=== PATIENT | male | born 1940 | race Two or more races ===

== ENCOUNTER 2022-12-15 01:10 | Inpatient (IN) | payer MEDICARE, OTHER ==
[~2022-12-15] VITALS: Ht 172.7 cm; Wt 85.7 kg
--- NOTE | 2022-12-15 01:19 | NUR ---
YOSHI FROM [facility] FOR SUBSTERNAL CP SINCE 11PM. 325 ASPIRIN AND 0.4 NITRO SPRAY X2 GIVEN YARN WEIGHT AND STRENGTH TESTER. PT A/OX3. TOLERATING R/A WELL WITH NO RESP DISTRESS. CONNECTED PT TO POX AND MONITOR. SAFETY MEASURES IN PLACE.
[2022-12-15] MEDS ORDERED: NITROGLYCERIN PACKET 1 GM PACKET ONE (01:23)
[2022-12-15] MEDS ORDERED: NITROGLYCERIN PACKET 1 GM PACKET TD ONE (01:30)
--- NOTE | 2022-12-15 01:39 | NUR ---
CLOSING MANAGER AT PT'S BEDSIDE
--- NOTE | 2022-12-15 01:39 | NUR ---
L IZA #20G S/L BLOOD COLLECTED AND SENT TO LAB
[2022-12-15 02:01] LABS: BASOPHILS % (AUTO) 0.3 % (0.0-2.0); CALCIUM, SERUM 8.5 mg/dL (8.5-10.1); CARBON DIOXIDE 26 mmol/L (21-32); CHLORIDE 102 mmol/L (98-107); CREATININE 1.1 mg/dL (0.6-1.3); GLUCOSE 114 mg/dL (74-106); HEMATOCRIT 42 % (39-51); HEMOGLOBIN 13.8 g/dL (13.5-17.5); LYMPHOCYTES # (AUTO) 2.4 K/uL (0.8-4.8); LYMPHOCYTES % (AUTO) 38.5 % (20.0-44.0); MEAN CORPUSCULAR HGB CONC 33 g/dl (31.0-36.0); MEAN CORPUSCULAR VOLUME 94 fL (80-96); MONOCYTES # (AUTO) 0.6 K/uL (0.1-1.30); MONOCYTES % (AUTO) 10.3 % (2.0-12.0); NEUTROPHILS % (AUTO) 48.9 % (43.0-81.0); PLATELET COUNT (AUTO) 173 K/uL (150-450); POTASSIUM 3.5 mmol/L (3.5-5.1); RED BLOOD CELL COUNT(AUTO) 4.46 MIL/uL (4.5-6.0); SODIUM SERUM 137 mmol/L (136-145); UREA NITROGEN, BLOOD 21 mg/dL (7-18); WHITE BLOOD COUNT (AUTO) 6.2 K/uL (4.3-11.0)
--- NOTE | 2022-12-15 02:33 | NUR ---
DR ALICEA ON THE PHONE WITH DR JACI HAYWOOD [phone]
[2022-12-15] MEDS ORDERED: CHOL100045 PO (02:40)
[2022-12-15] MEDS ORDERED: TIZA4TAB5 PO (02:40)
[2022-12-15] MEDS ORDERED: TAMS-12 PO (02:40)
[2022-12-15] MEDS ORDERED: METF-881 PO (02:40)
[2022-12-15] MEDS ORDERED: POTA20TA83 PO (02:40)
[2022-12-15] MEDS ORDERED: FURO40TA5 PO (02:40)
[2022-12-15] MEDS ORDERED: PANT40TA49 PO (02:40)
[2022-12-15] MEDS ORDERED: GABA-532 PO (02:40)
[2022-12-15] MEDS ORDERED: FINA5TAB3 PO (02:40)
[2022-12-15] MEDS ORDERED: DEXTROSE 50%-WATER 50 ML DISP.SYRIN IV PRN (03:00)
[2022-12-15] MEDS ORDERED: MAGNESIUM HYDROXIDE 30 ML UDC PO PRN (03:00)
[2022-12-15] MEDS ORDERED: MORPHINE SULFATE INJ 2 MG/ML DISP.SYRIN IV PRN (03:00)
[2022-12-15] MEDS ORDERED: HYDROCODONE/APAP 5/325MG TABLET PO PRN (03:00)
[2022-12-15] MEDS ORDERED: ONDANSETRON HCL/PF 4 MG/2 ML VIAL IVP PRN (03:00)
[2022-12-15] MEDS ORDERED: MAG HYDROX/AL HYDROX/SIMETH 30 ML UDC PO PRN (03:00)
[2022-12-15] MEDS ORDERED: ACETAMINOPHEN 325 MG TABLET PO PRN (03:00)
--- NOTE | 2022-12-15 03:17 | NUR ---
SPOKE TO DR JACI HAYWOOD AND CLARIFIED THE ADMITTING ORDER: LEVEL OF CARE IS TELE
--- NOTE | 2022-12-15 03:38 | NUR ---
REPORT GIVEN TO LINNEA ON THIRD FLOOR
--- NOTE | 2022-12-15 04:46 | NUR ---
PT TRANFERRED TO 310-2 VIA ACLS PROTOCOL. VSS. ALL BEONGINGS WITH PT.
--- NOTE | 2022-12-15 05:00 | NUR ---
CONTRACT RUNNERBPO SPECIALIST NOTE PATIENT ARRIVED FROM ER D/T SUBSTERNAL CP SINCE 11 PM. PATIENT ALERT/ORIENTED X 2-3 WITH SOME CONFUSION. PATIENT STABLE ON RA, NO S/S OF DISTRESS OR SOB NOTED, BREATHING EVEN AND UNLABORED. IV ACCESS ON RIGHT HAND #20G INTACT AND FLUSHING WELL, SALINE LOCKED. PATIENT FROM [facility], PER [facility]APERWORK FROM [facility] HX OF CHF, DM, SCHIZOPHRENIA, MUSCLE WEAKNESS, PT REPORTS HX OF BILATERAL HIP REPLACEMENTS. PATIENT STATES HE'S FULLY VACCINATED FOR COVID BUT DOESN'T REMEMBER DATES, VACCINATED FOR FLU OCT 2022, UNSURE IF VACCINATED FOR PNA. PATIENT PLACED ON EXTERNAL SURGICAL TECH READING CONTROLLED A. FIB, HR: 67. PATIENT NOTED WITH SACRAL, BILATERAL HEEL AND BILATERAL LEG REDNESS. ORIENTED PATIENT TO ROOM AND HOW TO USE CALL LIGHT. SAFETY MEASURES IN PLACE: CALL LIGHT WITHIN REACH, SIDE RAILS UP X 3, BED LOCKED IN LOWEST POSITION, HOB ELEVATED, BED ALARM ON. WILL CONTINUE TO MONITOR PATIENT
[2022-12-15] MEDS: BLOOD SUGAR DIAGNOSTIC 1 EACH STRIP VI SCH ×4 (06:56→22:07)
[2022-12-15] MEDS: INSULIN REGULAR, HUMAN 100 UNIT/ML 3 ML VIAL SQ PRN ×2 (06:57→18:34)
[2022-12-15 07:16] LABS: CHOLESTEROL 117 mg/dL (<200); HDL CHOLESTEROL 48 mg/dL (40-60); LDL 65 mg/dL (0-99); TRIGLYCERIDES 70 mg/dL (30-150)
--- NOTE | 2022-12-15 07:19 | NUR ---
CERTIFIED HEALTH EDUCATION SPECIALIST CLOSING NOTE PATIENT AWAKE IN BED, ALERT/ORIENTED X 2-3 WITH SOME CONFUSION AT TIMES. PATIENT STABLE ON RA, NO S/S OF DISTRESS OR SOB NOTED, BREATHING EVEN AND UNLABORED. PATIENT ON EXTERNAL MEDIA EXECUTIVE READING CONTROLLED A. FIB, HR: 65. IV ACCESS ON RIGHT HAND #20G INTACT AND SALINE LOCKED. PATIENT'S BS THIS MORNING 98, NO COVERAGE NEEDED PER SLIDING SCALE. SAFETY MEASURES IN PLACE: CALL LIGHT WITHIN REACH, SIDE RAILS UP X 3, BED LOCKED IN LOWEST POSITION, HOB ELEVATED, BED ALARM ON. WILL ENDORSE TO DAYSHIFT RN FOR CONTINUITY OF CARE
--- NOTE | 2022-12-15 07:30 | NUR ---
RN OPENING NOTE PATIENT RECEIVED FROM NIGHTSHIFT NURSE IN BED ASLEEP. PATIENT ALERT/ORIENTED X 2-3 WITH SOME CONFUSION. PATIENT STABLE ON RA, NO S/S OF DISTRESS OR SOB NOTED, BREATHING EVEN AND UNLABORED. IV ACCESS ON RIGHT HAND #20G INTACT AND FLUSHING WELL, SALINE LOCKED. PT REPORTS HX OF BILATERAL HIP REPLACEMENTS. PATIENT STATES HE'S FULLY VACCINATED FOR COVID BUT DOESN'T REMEMBER DATES, VACCINATED FOR FLU OCT 2022, UNSURE IF VACCINATED FOR PNA. PATIENT PLACED ON EXTERNAL FRONT DESK RECEPTIONIST READING CONTROLLED A. FIB, HR: 65. PATIENT NOTED WITH SACRAL, BILATERAL HEEL AND BILATERAL LEG REDNESS. ORIENTED PATIENT TO ROOM AND HOW TO USE CALL LIGHT. SAFETY MEASURES IN PLACE: CALL LIGHT WITHIN REACH, SIDE RAILS UP X 3, BED LOCKED IN LOWEST POSITION, HOB ELEVATED, BED ALARM ON. WILL CONTINUE TO MONITOR PATIENT
[2022-12-15] MEDS ORDERED: DOCU-141 PO (07:56)
[2022-12-15] MEDS ORDERED: ACET-868 PO (07:56)
[2022-12-15] MEDS ORDERED: OXYC-128 PO (07:56)
[2022-12-15] MEDS ORDERED: DIPH25CA51 PO (07:56)
[2022-12-15] MEDS ORDERED: POLY15DR40 EACHEYE (07:56)
[2022-12-15 08:13] VITALS: BP 102/62
[2022-12-15] MEDS: TIZANIDINE HCL 4 MG TABLET PO SCH ×2 (08:26→18:01)
[2022-12-15] MEDS: TAMSULOSIN 0.4 MG CAP.SR.24H PO SCH (08:27)
[2022-12-15] MEDS: FINASTERIDE (5 MG) 5 MG TABLET PO SCH (08:27)
[2022-12-15] MEDS: GABAPENTIN 100 MG CAPSULE PO SCH ×3 (08:27→18:00)
[2022-12-15] MEDS: FUROSEMIDE 40 MG TABLET PO SCH (08:27)
[2022-12-15] MEDS: CHOLECALCIFEROL 1,000 UNIT TABLET (VIT D3) PO SCH (08:27)
[2022-12-15] MEDS: POTASSIUM CHLORIDE 20 MEQ TAB.PRT.SR PO SCH (08:27)
[2022-12-15] MEDS: ASPIRIN EC 81 MG TABLET.DR PO SCH (08:27)
[2022-12-15] MEDS: DOCUSATE SODIUM 100 MG CAPSULE PO SCH ×2 (08:27→18:00)
[2022-12-15] MEDS: PANTOPRAZOLE 40 MG TABLET.DR PO SCH (08:27)
[2022-12-15] MEDS: APIXABAN 5 MG TABLET PO SCH ×2 (08:30→18:04)
[2022-12-15] MEDS ORDERED: AMIODARONE 450 MG in IV D5W 250 ML IV PRN (09:30)
--- NOTE | 2022-12-15 09:44 | NUR ---
RN NOTE\ ECHO DONE AT BEDSIDE BY TECH
--- NOTE | 2022-12-15 09:57 | NUR ---
RN NOTE PATIENT BEING PREPARED FOR TRANSFER TO [facility] B[facility] 105 DUE TO HAVING AMIODARONE DRIP
[2022-12-15] MEDS ORDERED: AMIODARONE 450 MG in IV D5W 241 ML IV PRN (10:00)
[2022-12-15] MEDS ORDERED: APIXABAN 5 MG TABLET PO SCH (10:00)
[2022-12-15] MEDS ORDERED: AMIODARONE 150 MG in IV D5W 100 ML IV ONE (10:00)
--- NOTE | 2022-12-15 10:30 | NUR ---
PRIMER WATERPROOFING MACHINE OPERATOR NOTE RECEIVED REPORT FROM RECLAMATION ENGINEER. PATIENT ALERT/ORIENTED X 2-3 WITH PERIODS OF CONFUSION. PATIENT STABLE ON RA, NO S/S OF DISTRESS OR SOB NOTED, BREATHING EVEN AND UNLABORED. IV ACCESS ON RIGHT HAND #20G INTACT AND FLUSHING WELL, SALINE LOCKED. PATIENT PLACED ON EXTERNAL CHIEF COMMERCIAL OFFICER READING CONTROLLED A. FIB.ALL SAFETY MEASURES IN PLACE: CALL LIGHT WITHIN REACH, SIDE RAILS UP X 3, BED LOCKED IN LOWEST POSITION, HOB ELEVATED, BED ALARM ON. BEDSIDE TABLE NEXT TO PATIENT
--- NOTE | 2022-12-15 11:05 | NUR ---
rn note notiifed dr. guardado that patient is controlled afib 76, and bp 104/45. and if to start amiodarone. said to notify dr. hutchins. order noted and carried out
--- NOTE | 2022-12-15 11:41 | NUR ---
rn note started amiodarone bolus, hr became 48. notified dr. hutchins. said to hold amiodarone. orders noted and carried out
--- NOTE | 2022-12-15 12:00 | NUR ---
rn note accucheck 1200 bs 155, insulin coverage not given due to poor appetite
--- NOTE | 2022-12-15 13:03 | NUR ---
rn note notified dr. guardado that pt shows signs of agitation and if restraints can be ordered. ordered ativan 1 mg IV once. said restraints okay if necessary pt sleeping at this time.
--- NOTE | 2022-12-15 19:30 | NUR ---
RN OPENING NOTE RECEIVED PT IN BED, ASLEEP. CURRENTLY ON RA WITH NO S/SX OF ACUTE RESPI DISTRESS NOTED AT THIS TIME. NO SOB, BREATHING IS EVEN AND UNLABORED. TRAINING ADMINISTRATOR SHOWS AFIB CONTROLLED WITH HR IN THE 60s. IV ACCESS ON RIGHT HAND, #20G, PATENT, INTACT AND FLUSHES WELL, SL ONLY. ALL SAFETY MEASURES IN PLACE: BED LOCKED IN LOWEST POSITION, HOB ELEVATED, BED ALARM ON, CALL LIGHT WITHIN REACH, SIDE RAILS UP X 3. WILL CONTINUE TO MONITOR PATIENT
--- NOTE | 2022-12-15 19:57 | NUR ---
FROTHING MACHINE OPERATOR closing NOTE PATIENT ALERT/ORIENTED X 2-3 WITH PERIODS OF CONFUSION. PATIENT STABLE ON RA, NO S/S OF DISTRESS OR SOB NOTED, BREATHING EVEN AND UNLABORED. IV ACCESS ON RIGHT HAND #20G INTACT AND FLUSHING WELL, SALINE LOCKED. PATIENT PLACED ON EXTERNAL LITHODUPLICATOR OPERATOR READING CONTROLLED A. FIB.ALL SAFETY MEASURES IN PLACE: CALL LIGHT WITHIN REACH, SIDE RAILS UP X 3, BED LOCKED IN LOWEST POSITION, HOB ELEVATED, BED ALARM ON. BEDSIDE TABLE NEXT TO PATIENT.endorsed to yarn polishing machine operator rn for contuity of care
[2022-12-15 20:00] VITALS: BP 117/86
[2022-12-15] MEDS: *INSULIN REGULAR(HUMULIN R)HUM 100 UNIT/ML VIAL SQ PRN (22:08)
[2022-12-16] VITALS: BP_SYST 115; BP_SYST 121; BP_DIAS 57; BP_DIAS 62
[2022-12-16 04:00] VITALS: BP 106/63
--- NOTE | 2022-12-16 06:03 | NUR ---
RN NOTE NO SIGNIFICANT CHANGE T/O THE NIGHT. PT SLEPT ALMOST THE WHOLE TIME. NO S/SX OF ACUTE RESPI DISTRESS NOTED. AFIB CONTROLLED ON THE STUD DAIRY CATTLE FARMER. ALL DUE MEDS GIVEN. NEEDS MET. TURNED AND REPOSITIONED. WILL ENDORSE TO AM SHIFT NURSE FOR LINDA.
[2022-12-16 06:45] LABS: ALANINE AMINOTRANSFERASE 22 U/L (12-78); ALKALINE PHOSPHATASE 133 U/L (46-116); ASPARTATE AMINOTRANSFERASE 20 U/L (15-37); BILIRUBIN,TOTAL 0.7 mg/dL (0.2-1.0); CALCIUM, SERUM 8.8 mg/dL (8.5-10.1); CARBON DIOXIDE 25 mmol/L (21-32); CHLORIDE 102 mmol/L (98-107); CREATININE 1.2 mg/dL (0.6-1.3); GLUCOSE 105 mg/dL (74-106); POTASSIUM 4.1 mmol/L (3.5-5.1); SODIUM SERUM 136 mmol/L (136-145); UREA NITROGEN, BLOOD 27 mg/dL (7-18)
[2022-12-16 06:52] LABS: THYROID STIMULATING HORMONE 1.326 uIU/mL (0.358-3.74)
[2022-12-16 06:56] LABS: BASOPHILS % (AUTO) 0.2 % (0.0-2.0); EOSINOPHILS % (AUTO) 2.5 % (0.0-6.0); HEMATOCRIT 40 % (39-51); HEMOGLOBIN 13.3 g/dL (13.5-17.5); LYMPHOCYTES # (AUTO) 1.7 K/uL (0.8-4.8); LYMPHOCYTES % (AUTO) 32.5 % (20.0-44.0); MEAN CORPUSCULAR HGB CONC 33 g/dl (31.0-36.0); MEAN CORPUSCULAR VOLUME 93 fL (80-96); MONOCYTES # (AUTO) 0.6 K/uL (0.1-1.30); MONOCYTES % (AUTO) 11.7 % (2.0-12.0); NEUTROPHILS # (AUTO) 2.7 K/uL (1.8-8.9); NEUTROPHILS % (AUTO) 53.1 % (43.0-81.0); PLATELET COUNT (AUTO) 152 K/uL (150-450); WHITE BLOOD COUNT (AUTO) 5.2 K/uL (4.3-11.0)
--- NOTE | 2022-12-16 07:10 | NUR ---
CLIP ON SUNGLASSES INSPECTOR OPENING NOTES: RECEIVED PATIENT IN BED, AWAKE, ALERT, ORIENTED X 2. NO RESPIRATORY DISTRESS NOTED AT THIS TIME. ON RA WITH OXYGEN SATURATION OF 96%. ON CONTROLLED A-FIB WITH HR OF 96 PER TELE MONITOR. PATIENT HAS NO C/O CHEST PAIN OR DISCOMFORT AT THIS TIME. HAS IV ACCESS ON RIGHT HAND, SALINE LOCK, PATENT, FLUSHES WELL, NO S/S INFILTRATION NOTED. ALL SAFETY MEASURES IMPLEMENTED. BED LOCKED AND IN LOWEST POSITION WITH BED ALARM ON. CALL LIGHT WITHIN REACH AND INSTRUCTED PATIENT TO CALL FOR ASSISTANCE WHEN NEEDED. WILL CONTINUE TO MONITOR PATIENT THROUGHOUT SHIFT.
[2022-12-16] MEDS: PANTOPRAZOLE 40 MG TABLET.DR PO SCH (07:47)
[2022-12-16 08:00] VITALS: BP_SYST 11; BP_SYST 111; BP_DIAS 61
[2022-12-16] MEDS: INSULIN REGULAR, HUMAN 100 UNIT/ML 3 ML VIAL SQ PRN ×2 (08:09→11:41)
[2022-12-16] MEDS: BLOOD SUGAR DIAGNOSTIC 1 EACH STRIP VI SCH ×4 (08:10→22:03)
[2022-12-16] MEDS: GABAPENTIN 100 MG CAPSULE PO SCH ×3 (08:13→16:04)
[2022-12-16] MEDS: TAMSULOSIN 0.4 MG CAP.SR.24H PO SCH (08:13)
[2022-12-16] MEDS: CHOLECALCIFEROL 1,000 UNIT TABLET (VIT D3) PO SCH (08:13)
[2022-12-16] MEDS: TIZANIDINE HCL 4 MG TABLET PO SCH ×2 (08:14→16:04)
[2022-12-16] MEDS: FINASTERIDE (5 MG) 5 MG TABLET PO SCH (08:14)
[2022-12-16] MEDS: POTASSIUM CHLORIDE 20 MEQ TAB.PRT.SR PO SCH (08:14)
[2022-12-16] MEDS: ASPIRIN EC 81 MG TABLET.DR PO SCH (08:14)
[2022-12-16] MEDS: FUROSEMIDE 40 MG TABLET PO SCH (08:14)
[2022-12-16] MEDS: DOCUSATE SODIUM 100 MG CAPSULE PO SCH ×2 (08:14→16:04)
[2022-12-16] MEDS: APIXABAN 5 MG TABLET PO SCH ×2 (08:15→16:05)
[2022-12-16] MEDS ORDERED: MECLIZINE HCL 25 MG TABLET ONE (10:12)
[2022-12-16 12:00] VITALS: BP 100/55
[2022-12-16 16:00] VITALS: BP 106/65
--- NOTE | 2022-12-16 18:37 | NUR ---
OBGYN HOSPITALIST PHYSICIAN CLOSING NOTES: PATIENT IN BED AWAKE, ALERT, ORIENTED X 2. NO C/O CHEST PAIN OR DISCOMFORT NOTED THROUGHOUT SHIFT. ON CONTROLLED A-FIB WITH HR OR 71 PER TELE MONITOR. NO RESPIRATORY DISTRESS NOTED THROUGHOUT SHIFT. IV ACCESS INTACT ON RIGHT HAND, PATENT, FLUSHES WELL WITH NO S/S INFILTRATION NOTED. ALL NEEDS MET AND ANTICIPATED. PATIENT TOOK ALL HIS MEDS ORDERED AND WAS ABLE TO EAT INDEPENDENTLY. NO PERIOD OF AGITATION NOTED THROUGHOUT SHIFT. ALL SAFETY MEASURES IMPLEMENTED. BED LOCKED AND IN LOWEST POSITION. WILL ENDORSE TO INCOMING NURSE FOR CONTINUITY OF CARE.
--- NOTE | 2022-12-16 19:25 | NUR ---
DOT ETCHER APPRENTICE OPENING NOTES - RECEIVED PATIENT SLEEPING IN BED, EASY TO AROUSE BUT LETHARGIC. A/O X1. BREATHING EVEN AND NON-LABORED ON ROOM AIR. NOT IN APPARENT DISTRESS. NO C/O PAIN OR DISCOMFORT AT THIS TIME. ON TELE MONITOR READING A-FLUTTER AT 68 BPM. HAS RIGHT HAND IV ACCESS #20 AND SALINE LOCKED. NO S/S OF INFILTRATION NOTED. SAFETY PRECAUTIONS IN PLACE: BED LOCKED AND IN LOW POSITION, SIDE RAILS UP X3, CALL LIGHT WITHIN REACH. WILL CONTINUE PLAN OF CARE.
[2022-12-16 20:00] VITALS: BP 96/52
[2022-12-16] MEDS: *INSULIN REGULAR(HUMULIN R)HUM 100 UNIT/ML VIAL SQ PRN (22:03)
[2022-12-17] VITALS: BP 100/52
[2022-12-17 04:00] VITALS: BP 101/55
[2022-12-17 06:26] LABS: BASOPHILS % (AUTO) 0.4 % (0.0-2.0); HEMATOCRIT 40 % (39-51); HEMOGLOBIN 13.2 g/dL (13.5-17.5); LYMPHOCYTES # (AUTO) 1.8 K/uL (0.8-4.8); LYMPHOCYTES % (AUTO) 38.3 % (20.0-44.0); MEAN CORPUSCULAR HGB CONC 33 g/dl (31.0-36.0); MEAN CORPUSCULAR VOLUME 94 fL (80-96); MONOCYTES # (AUTO) 0.6 K/uL (0.1-1.30); NEUTROPHILS # (AUTO) 2.2 K/uL (1.8-8.9); NEUTROPHILS % (AUTO) 46.3 % (43.0-81.0); PLATELET COUNT (AUTO) 154 K/uL (150-450); RED BLOOD CELL COUNT(AUTO) 4.26 MIL/uL (4.5-6.0); WHITE BLOOD COUNT (AUTO) 4.8 K/uL (4.3-11.0)
[2022-12-17] MEDS: BLOOD SUGAR DIAGNOSTIC 1 EACH STRIP VI SCH ×2 (06:37→12:03)
[2022-12-17] MEDS: INSULIN REGULAR, HUMAN 100 UNIT/ML 3 ML VIAL SQ PRN ×2 (06:38→12:03)
[2022-12-17 06:49] LABS: ALANINE AMINOTRANSFERASE 19 U/L (12-78); ALBUMIN 2.9 g/dL (3.4-5.0); ALKALINE PHOSPHATASE 124 U/L (46-116); ASPARTATE AMINOTRANSFERASE 17 U/L (15-37); BILIRUBIN,TOTAL 0.8 mg/dL (0.2-1.0); CALCIUM, SERUM 8.5 mg/dL (8.5-10.1); CARBON DIOXIDE 27 mmol/L (21-32); CHLORIDE 101 mmol/L (98-107); CREATININE 1.2 mg/dL (0.6-1.3); GLUCOSE 103 mg/dL (74-106); POTASSIUM 3.6 mmol/L (3.5-5.1); SODIUM SERUM 137 mmol/L (136-145); TOTAL PROTEIN, SERUM 6.8 g/dL (6.4-8.2); UREA NITROGEN, BLOOD 34 mg/dL (7-18)
--- NOTE | 2022-12-17 06:52 | NUR ---
WEB CONTENT PRODUCER CLOSING NOTES - PATIENT AWAKE IN BED. A/O X2. NO ACUTE DISTRESS THROUGHOUT THE NIGHT. AFEBRILE. DENIES PAIN AT THIS TIME. ON TELE MONITOR READING A-FLUTTER AT 76 BPM. RIGHT HAND IV ACCESS #20G INTACT, PATENT AND FLUSHING. ENCOURAGED INCREASE FLUID INTAKE. ALL DUE MEDS GIVEN AND NEEDS ATTENDED. SAFETY PRECAUTIONS MAINTAINED. WILL ENDORSE TO NEXT SHIFT FOR CONTINUITY OF CARE.
--- NOTE | 2022-12-17 07:05 | NUR ---
SHOE TREER OPENING NOTES RECEIVED PATIENT SLEEPING IN BED, EASY TO AROUSE BUT LETHARGIC. A/O X2. BREATHING EVEN AND NON-LABORED ON ROOM AIR. NOT IN APPARENT DISTRESS. NO C/O PAIN OR DISCOMFORT AT THIS TIME. ON TELE MONITOR READING A-FLUTTER . HAS RIGHT HAND IV ACCESS #20 AND SALINE LOCKED. NO S/S OF INFILTRATION NOTED. SAFETY PRECAUTIONS IN PLACE: BED LOCKED AND IN LOW POSITION, SIDE RAILS UP X3, CALL LIGHT WITHIN REACH.
[2022-12-17 08:00] VITALS: BP 108/74
[2022-12-17] MEDS: CHOLECALCIFEROL 1,000 UNIT TABLET (VIT D3) PO SCH (08:31)
[2022-12-17] MEDS: TIZANIDINE HCL 4 MG TABLET PO SCH (08:31)
[2022-12-17] MEDS: ASPIRIN EC 81 MG TABLET.DR PO SCH (08:31)
[2022-12-17] MEDS: PANTOPRAZOLE 40 MG TABLET.DR PO SCH (08:31)
[2022-12-17] MEDS: POTASSIUM CHLORIDE 20 MEQ TAB.PRT.SR PO SCH (08:31)
[2022-12-17] MEDS: DOCUSATE SODIUM 100 MG CAPSULE PO SCH (08:31)
[2022-12-17] MEDS: FINASTERIDE (5 MG) 5 MG TABLET PO SCH (08:32)
[2022-12-17] MEDS: TAMSULOSIN 0.4 MG CAP.SR.24H PO SCH (08:32)
[2022-12-17] MEDS: GABAPENTIN 100 MG CAPSULE PO SCH ×2 (08:32→12:02)
[2022-12-17] MEDS: FUROSEMIDE 40 MG TABLET PO SCH (08:32)
[2022-12-17] MEDS: APIXABAN 5 MG TABLET PO SCH (08:33)
[2022-12-17 12:00] VITALS: BP 111/78
--- NOTE | 2022-12-17 15:21 | NUR ---
RN NOTE CALLED IN REPORT TO [facility] SPOKE WITH MARGOT MARTEL GAVE REPORT PATIENT WILL BE GOING TO ROOM 33A. ALL QUESTIONS ANSWERED.
[2022-12-17 16:00] VITALS: BP 108/61
--- NOTE | 2022-12-17 16:57 | NUR ---
RN NOTE PATIENT PICKED UP BY EMT IN STABLE CONDITION. PATIENT WILL BE TAKEN TO [facility].
== END 2022-12-17 17:20 | DRG 309 ==
LOC: ER 01:14 → TELE 03:20 → TELE-TD 10:30 → TELE1 13:21
PROVIDERS: ADMIT Internal Medicine; ATTEND Internal Medicine
DX: I48.91 Unspecified atrial fibrillation (principal); E44.1 Mild protein-calorie malnutrition; Z20.822 Contact with and (suspected) exposure to COVID-19; I11.0 Hypertensive heart disease with heart failure; I50.9 Heart failure, unspecified; E11.40 Type 2 diabetes mellitus with diabetic neuropathy, unspecified; Z79.84 Long term (current) use of oral hypoglycemic drugs; Z79.899 Other long term (current) drug therapy; Z96.643 Presence of artificial hip joint, bilateral; Z98.890 Other specified postprocedural states; I25.10 Atherosclerotic heart disease of native coronary artery without angina pectoris; F20.9 Schizophrenia, unspecified; E66.3 Overweight; D64.9 Anemia, unspecified; F03.90 Unspecified dementia, unspecified severity, without behavioral disturbance, psychotic disturbance, mood disturbance, and anxiety; M19.90 Unspecified osteoarthritis, unspecified site; N40.0 Benign prostatic hyperplasia without lower urinary tract symptoms; Z68.28 Body mass index [BMI] 28.0-28.9, adult
CPT/HCPCS: 36415; 71045-TC; 80048-TC; 80053-TC; 80061-TC; 82962-TC; 83880; 84443-TC; 84484-TC; 85025-TC; 87081-TC; 93307-TC; 97112-TC; 97116-TC; 97530-TC; C9803; G0378; J0282; J1815; J7050; J7060; J8597